=== PATIENT | female | born 1945 | race American Indian/Alaskan Native ===

== ENCOUNTER 2018-08-22 02:37 | Emergency (ER) | payer MEDICARE ==
[2018-08-22 03:41] VITALS: BP 149/84
--- NOTE | 2018-08-22 04:32 | Emergency Department Report ---
HPI - General Chief Complaint: Medical Clearance Time Seen by Provider: 08/22/18 04:19 - [facility] HPI: Reid 27 The patient is a 73-year-old female presenting with chief complaint of need for medication refill. The patient has a history of bipolar disorder and schizoaffective disorder and states she ran out of her Abilify yesterday. Patient denies complaints states she needs a refill of medication. Patient denies suicidal or homicidal ideation. Patient denies auditory or visual hallucinations. Location: [See above] Duration: One day Quality: Asymptomatic Severity: [See above] Modifying factors: [see above] Context: [see above] Mode of transportation: [not driving] ED Past Medical Hx - Past Medical History Hx Hypertension: Yes Hx Psychiatric Treatment: Yes (Bipolar, Schizoaffective) Hx Dementia: Yes Additional medical history: Heart Murmur - Surgical History Hx Cholecystectomy: Yes Additional Surgical History: Tubal Ligation - Family History Family history: no significant - Social History Smoking Status: Never Smoker Substance Use Type: None (denies illicit drug use) - Medications Home Medications: Home Medications Medication Instructions Recorded Confirmed Last Taken Type ARIPiprazole 10 mg PO DAILY #30 08/22/18 Unknown Rx ED Review of Systems ROS: Stated complaint: MH EVALUATION OUT OF MEDICATION Other details as noted in HPI Constitutional: no symptoms reported Eyes: denies: eye pain ENT: denies: throat pain Respiratory: no symptoms reported Cardiovascular: denies: chest pain Endocrine: no symptoms reported Gastrointestinal: denies: abdominal pain Genitourinary: denies: dysuria Musculoskeletal: denies: back pain Neurological: denies: headache Psychiatric: denies: auditory hallucinations, visual hallucinations, homicidal thoughts, suicidal thoughts Physical Exam - Physical Exam Vital Signs: Vital Signs 08/22/18 03:34 Temperature 97.9 F Pulse Rate 72 Respiratory 16 Rate Blood Pressure 149/84 O2 Sat by Pulse 98 Oximetry Physical Exam: GENERAL: The patient is well-developed well-nourished female sitting on stretcher not appearing to be in acute distress. [] HEENT: Normocephalic. Atraumatic. Extraocular motions are intact. Patient has moist mucous membranes. NECK: Supple. Trachea midline CHEST/LUNGS: Clear to auscultation. There is no respiratory distress noted. HEART/CARDIOVASCULAR: Regular. There is no tachycardia. There is no gallop rub or murmur. ABDOMEN: Abdomen is soft, nontender. Patient has normal bowel sounds. There is no abdominal distention. SKIN: There is no rash. There is no diaphoresis. NEURO: The patient is awake, alert, and oriented. The patient is cooperative. The patient has no focal neurologic deficits. The patient has normal speech. Cranial nerves II through XII grossly intact, no drift MUSCULOSKELETAL: There is no evidence of acute injury. ED Course Vital Signs 08/22/18 03:34 Temperature 97.9 F Pulse Rate 72 Respiratory 16 Rate Blood Pressure 149/84 O2 Sat by Pulse 98 Oximetry ED Medical Decision Making - Differential Diagnosis medication refill Critical care attestation.: If time is entered above; I have spent that time in minutes in the direct care of this critically ill patient, excluding procedure time. ED Disposition Clinical Impression: Encounter for medication refill Disposition: DC-01 TO HOME OR SELFCARE Is pt being admited?: No Does the pt Need Aspirin: No Condition: Stable Additional Instructions: Return to the emergency department immediately should you develop worsening symptoms, fever, inability to tolerate food or liquid or any other concerns. Prescriptions: ARIPiprazole 10 mg PO DAILY #30 Referrals: PRIMARY CARE, [Primary Care Provider] - 3-5 Days [facility] [Outside] - 3-5 Days Time of Disposition: 04:31
== END 2018-08-22 04:46 | disposition home or self-care (01) ==
LOC: ED 02:37
DX: F31.9 Bipolar disorder, unspecified (principal); F25.9 Schizoaffective disorder, unspecified; Z76.0 Encounter for issue of repeat prescription; I10 Essential (primary) hypertension; Z98.51 Tubal ligation status; Z90.49 Acquired absence of other specified parts of digestive tract
CPT/HCPCS: 99282